=== PATIENT | male | born 1975 | race African-American/Black ===

== ENCOUNTER 2018-12-04 00:26 | Emergency (ER) | payer SELFPAY ==
[2018-12-04] MEDS ORDERED: ASPIRIN 81 MG TABLET, CHEWABLE PO ONE (01:00)
[2018-12-04 05:14] LABS: ABSOLUTE BASOPHILS # (AUTO) 0.1 10^3/uL (0.0-0.2); ABSOLUTE EOSINOPHILS # (AUTO) 0.4 10^3/uL (0.0-0.6); ABSOLUTE LYMPHOCYTES (AUTO) 1.8 10^3/uL (0.5-4.7); ABSOLUTE MONOCYTES (AUTO) 0.7 10^3/uL (0.1-1.4); ABSOLUTE NEUT (AUTO) 4.1 10^3/uL (1.7-8.2); BASOPHILS % (AUTO) 0.8 % (0-2); EOSINOPHILS % (AUTO) 5.2 % (0-6); HEMATOCRIT 45.2 % (37.9-51.0); HEMOGLOBIN 15.5 g/dL (13.5-17.0); LYMPHOCYTES % (AUTO) 25.4 % (13-45); MEAN CORPUSCULAR HGB CONC 34.3 g/dL (32.0-36.0); MEAN CORPUSCULAR VOLUME 85 fl (80-97); MONOCYTES % (AUTO) 10.2 % (3-13); PLATELET COUNT 170 10^3/uL (150-450); RED BLOOD COUNT 5.34 10^6/uL (4.35-5.55); RED CELL DISTRIBUTION WIDTH 13.2 % (11.5-14.0); SEGMENTED NEUTROPHILS % (AUTO) 58.4 % (42-78); TOTAL CELLS COUNTED % (AUTO) 100 %
[2018-12-04 05:29] LABS: ALANINE AMINOTRANSFERASE 39 U/L (21-72); ALKALINE PHOSPHATASE 49 U/L (38-126); ANION GAP 9 (5-19); ASPARTATE AMINO TRANSFERASE 24 U/L (17-59); BILIRUBIN,DIRECT 0.2 mg/dL (0.0-0.4); BILIRUBIN,TOTAL 0.5 mg/dL (0.2-1.3); BLOOD UREA NITROGEN 12 mg/dL (7-20); CALCIUM 9.3 mg/dL (8.4-10.2); CARBON DIOXIDE 24 mmol/L (22-30); CHLORIDE 108 mmol/L (98-107); CREATINE KINASE 144 U/L (55-170); GLUCOSE 108 mg/dL (75-110); POTASSIUM 3.9 mmol/L (3.6-5.0); SODIUM 141.1 mmol/L (137-145); TOTAL PROTEIN 7.4 g/dL (6.3-8.2)
[2018-12-04 05:42] LABS: TROPONIN I < 0.012 ng/mL
--- NOTE | 2018-12-04 06:08 | RADIOLOGY REPORT (SQ) ---
EXAM DESCRIPTION: XR CHEST 1 VIEW COMPLETED DATE/TME: 12/04/2018 01:00 CLINICAL HISTORY: 43 years, Male, CP COMPARISON: None. NUMBER OF VIEWS: One TECHNIQUE: AP view of the chest LIMITATIONS: None. FINDINGS: The lungs are clear. The heart is normal in size. There is no pneumothorax or pleural effusion. There is no acute fracture. The bones are unremarkable IMPRESSION: No acute cardiopulmonary abnormality copyright 2010 [employer]- All Rights Reserved
--- NOTE | 2018-12-04 07:37 | ER Document Report ---
ED Medical Screen (RME) - General Chief Complaint: Chest Pain > 30 Stated Complaint: CHEST PAIN Time Seen by Provider: 12/04/18 07:25 Notes: 43-year-old male, chief complaint of chest pain. He states he woke up with it last night, it felt tight in his sternum area, he also reports pain and tightness in his neck and upper back. Pain is worse with movement. He states symptoms have been intermittent for "a while", worse last night. 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 He smokes, has a history of hypertension, denies personal family cardiac history, denies recreational drugs. Currently only complaining of his neck and back hurting. TRAVEL OUTSIDE OF THE [place] IN LAST 30 DAYS: No - Related Data Allergies/Adverse Reactions: No Known Allergies Allergy (Unverified 11/15/15 11:27) Past Medical History - Past Medical History Cardiac Medical History: Reports: Hx Hypercholesterolemia, Hx Hypertension Renal/ Medical History: Denies: Hx Peritoneal Dialysis - Immunizations Hx Diphtheria, Pertussis, Tetanus Vaccination: Yes Physical Exam - Vital signs Vitals: Temp Pulse Resp BP Pulse Ox 98.1 F 68 16 144/91 H 97 12/04/18 00:33 12/04/18 00:33 12/04/18 00:33 12/04/18 00:33 12/04/18 00:33 - Respiratory Respiratory status: No respiratory distress Breath sounds: Normal - Cardiovascular Rhythm: Regular. No: Tachycardia Heart sounds: Normal auscultation, S1 appreciated, S2 appreciated Course - Re-evaluation Re-evalutation: Cycling second troponin, most likely musculoskeletal source I have greeted and performed a rapid initial assessment of this patient. A comprehensive ED assessment and evaluation of the patient, analysis of test results and completion of the medical decision making process will be conducted by additional ED providers. - Vital Signs Vital signs: Temp Pulse Resp BP Pulse Ox 98.1 F 68 16 144/91 H 97 12/04/18 00:33 12/04/18 00:33 12/04/18 00:33 12/04/18 00:33 12/04/18 00:33 - Laboratory Result Diagrams: 12/04/18 05:01 12/04/18 05:01 Laboratory results interpreted by me: 12/04/18 05:01 Chloride 108 H
--- NOTE | 2018-12-04 07:47 | EKG REPORT ---
SEVERITY:- ABNORMAL ECG - SINUS RHYTHM CONSIDER ANTEROSEPTAL INFARCT : Confirmed by: Valdez Claudio MD 04-Dec-2018 07:46:22
--- NOTE | 2018-12-04 10:08 | ER Document Report ---
ED General - General Chief Complaint: Chest Pain > 30 Stated Complaint: CHEST PAIN Time Seen by Provider: 12/04/18 07:25 Notes: 43-year-old male to the emergency department chief complaint of chest and back pain. Patient states that he has been having the symptoms for several days now. Having some coughing and wheezing as well. Waking up with mucus around his nose and eyes. The pain is located in the sternal area on the left side. Also having some pain in the back. Denies any shortness of breath. Does smoke. Does use marijuana. Does not take any medications. Was incarcerated for quite some time and during his incarceration he was on some blood pressure medications but since he has been released from custodial he has not been on any medications. Patient works as a building construction superintendent and around a lot of mold and dust recently and seems to be making his breathing worse. Movement makes the pain worse. Rest makes it better. No prior history of blood clots, DVTs, pulmonary embolisms. Mother had hypertension and diabetes and heart problems with 2 stents in her 60s. TRAVEL OUTSIDE OF THE [place] IN LAST 30 DAYS: No - HPI Onset: Last week Onset/Duration: Gradual, Waxing and waning Quality of pain: Achy Severity: Moderate Pain Level: 3 - Related Data Allergies/Adverse Reactions: No Known Allergies Allergy (Unverified 11/15/15 11:27) Past Medical History - Social History Smoking Status: Unknown if Ever Smoked Family History: Reviewed & Not Pertinent Patient has suicidal ideation: No Patient has homicidal ideation: No - Past Medical History Cardiac Medical History: Reports: Hx Hypercholesterolemia, Hx Hypertension Renal/ Medical History: Denies: Hx Peritoneal Dialysis - Immunizations Hx Diphtheria, Pertussis, Tetanus Vaccination: Yes Review of Systems - Review of Systems Notes: Constitutional: denies: Chills, Diaphoresis, Fever, Malaise, Weakness EENT: denies: Eye discharge, Blurred vision, Tearing, Double vision, Nose congestion, Nose discharge, Throat swelling, Mouth pain Cardiovascular: Patient denies any heart palpitations, heart is not racing. Denies any significant dyspnea. No dyspnea on exertion. No edema of the extremities. Does complain of some chest pain midsternum and rib pain at the back. Respiratory: Complaining of mild cough, wheezing but no shortness of breath. Gastrointestinal: denies: Abdominal pain, Diarrhea, Nausea, Vomiting, Black stools, bright red blood in stool Genitourinary: denies: Burning, Dysuria, Discharge, Frequency, Flank pain, Hematuria Musculoskeletal: denies: Joint pain, Joint swelling, Muscle pain, Muscle stiffness, back pain Hematologic/Lymphatic: denies: Anemia, Easy bleeding, Easy bruising, Blood clots Neurological/Psychological: denies: Confusion, Dementia, Depression, Loss of consciousness Skin: No lesions, no masses, no skin breakdown, no abscesses Physical Exam - Vital signs Vitals: Temp Pulse Resp BP Pulse Ox 98.1 F 68 16 144/91 H 97 12/04/18 00:33 12/04/18 00:33 12/04/18 00:33 12/04/18 00:33 12/04/18 00:33 Interpretation: Normal - General General appearance: Appears well, Alert - HEENT Head: Normocephalic, Atraumatic Eyes: Normal Pupils: PERRL - Respiratory Respiratory status: No respiratory distress Chest status: Nontender Breath sounds: Normal Chest palpation: Normal - Cardiovascular Rhythm: Regular Heart sounds: Normal auscultation Murmur: No Notes: Patient does have reproducible chest wall pain with palpation of the sternum at the costochondral margins. Has some mild pain to palpation at the costochondral margin of the thoracic spine on the left side. - Abdominal Inspection: Normal Distension: No distension Bowel sounds: Normal Tenderness: Nontender Organomegaly: No organomegaly - Back Back: Normal, Nontender - Extremities General upper extremity: Normal inspection, Nontender, Normal color, Normal ROM, Normal temperature. No: Edema General lower extremity: Normal inspection, Nontender, Normal color, Normal ROM, Normal temperature, Normal weight bearing. No: Edema, Mckenzie's sign - Neurological Neuro grossly intact: Yes Cognition: Normal Orientation: AAOx4 Konstantin Coma Scale Eye Opening: Spontaneous Konstantin Coma Scale Verbal: Oriented Konstantin Coma Scale Motor: Obeys Commands Mather Coma Scale Total: 15 Speech: Normal Motor strength normal: LUE, RUE, LLE, RLE Sensory: Normal - Psychological Associated symptoms: Normal affect, Normal mood - Skin Skin Temperature: Warm Skin Moisture: Dry Skin Color: Normal Course - Re-evaluation Re-evalutation: 12/04/18 10:34 Laboratory 12/04/18 12/04/18 12/04/18 05:01 05:01 05:01 WBC 7.0 RBC 5.34 Hgb 15.5 Hct 45.2 MCV 85 MCH 29.0 MCHC 34.3 RDW 13.2 Plt Count 170 Seg Neutrophils % 58.4 Lymphocytes % 25.4 Monocytes % 10.2 Eosinophils % 5.2 Basophils % 0.8 Absolute Neutrophils 4.1 Absolute Lymphocytes 1.8 Absolute Monocytes 0.7 Absolute Eosinophils 0.4 Absolute Basophils 0.1 Sodium 141.1 Potassium 3.9 Chloride 108 H Carbon Dioxide 24 Anion Gap 9 BUN 12 Creatinine 0.82 Est GFR ( Amer) > 60 Est GFR (Non-Af Amer) > 60 Glucose 108 Calcium 9.3 Total Bilirubin 0.5 Direct Bilirubin 0.2 Neonat Total Bilirubin Not Reportable Neonat Direct Bilirubin Not Reportable Neonat Indirect Bili Not Reportable AST 24 ALT 39 Alkaline Phosphatase 49 Creatine Kinase 144 CK-MB (CK-2) 1.10 Troponin I < 0.012 Total Protein 7.4 Albumin 4.0 12/04/18 08:05 WBC RBC Hgb Hct MCV MCH MCHC RDW Plt Count Seg Neutrophils % Lymphocytes % Monocytes % Eosinophils % Basophils % Absolute Neutrophils Absolute Lymphocytes Absolute Monocytes Absolute Eosinophils Absolute Basophils Sodium Potassium Chloride Carbon Dioxide Anion Gap BUN Creatinine Est GFR ( Amer) Est GFR (Non-Af Amer) Glucose Calcium Total Bilirubin Direct Bilirubin Neonat Total Bilirubin Neonat Direct Bilirubin Neonat Indirect Bili AST ALT Alkaline Phosphatase Creatine Kinase CK-MB (CK-2) Troponin I < 0.012 Total Protein Albumin Chest X-Ray 12/04/18 01:00 IMPRESSION: No acute cardiopulmonary abnormality copyright 2010 [employer]- All Rights Reserved Patient has had 2 sets of cardiac enzymes which are negative. Troponin undetectable. EKGs are normal sinus rhythm with a rate of 56 and 58. No significant pathology and no change from prior. Has reproducible chest wall pain. Patient visibly in pain when moving positions. He also reports some wheezing and coughing. More likely patient has just a little bit of inflammation. I am going to go ahead and treat him with a breathing treatment some Toradol and some prednisone. Unlikely this represents a cardiac event. Patient has a heart score of 3 still in low risk category. Patient and I did discuss the need for outpatient work-up including a stress test. We also discussed inpatient work-up versus outpatient work-up. He definitely does not want to be admitted for stress test. I am giving him follow-up information for some local [employer] associate that can provide affordable outpatient treadmill stress testing as well as echo stress testing. I have discussed with him about the need for risk modification management including smoking cessation, weight loss and blood pressure control. At this time I believe patient is stable for outpatient work-up and will DC at this time in stable condition. - Vital Signs Vital signs: Temp Pulse Resp BP Pulse Ox 98 F 68 16 148/80 H 98 12/04/18 08:00 12/04/18 00:33 12/04/18 08:00 12/04/18 08:00 12/04/18 08:00 - Laboratory Result Diagrams: 12/04/18 05:01 12/04/18 05:01 Laboratory results interpreted by me: 12/04/18 05:01 Chloride 108 H Discharge - Discharge Clinical Impression: Chest wall pain, Bronchitis Hypertension Qualifiers: Hypertension type: unspecified Qualified Code(s): I10 - Essential (primary) hypertension Condition: Good Disposition: HOME, SELF-CARE Instructions: Anti-Inflammatory Medication ([facility]), Aspirin (Cardiac) ([facility]), High Blood Pressure, Requiring Treatment ([facility]), Chest Pain of Unclear Cause ([facility]) Additional Instructions: It is very important that you stop smoking. Smoking is a #1 change that you can make to increase longevity and increase health span. Your blood pressure is slightly elevated today at 145/90. The current recommendations suggest that aggressive treatment of even moderately elevated blood pressure will be beneficial for health span and longevity. You will need further testing. I have provided follow-up information for [employer] associate that you should schedule an appointment with. They can assess whether or not you need other medications and can perform cost-effective risk stratification tests in their office such as stress testing and echocardiograms. In the event you develop any worsening symptoms you should return however for repeat evaluation. The observation time in the emergency department and labs as well as other testing did not reveal any major pathology today however things can change very rapidly. Once again please return immediately if symptoms are getting worse. Prescriptions: Albuterol Sulfate [Ventolin Hfa 8 gm Mdi (1 Mdi/ER Disp)] 2 puff IH ASDIR PRN 7 Days #1 inhaler PRN Reason: Aspirin [Adult Low Dose Aspirin EC] 81 mg PO DAILY 60 Days #60 tablet. Ibuprofen [Motrin 600 Mg Tablet] 600 mg PO TID 5 Days #15 tablet Losartan Potassium [Cozaar 25 mg Tablet] 25 mg PO DAILY 30 Days #30 tablet Prednisone [Deltasone 20 mg Tablet] 3 tab PO DAILY 5 Days #15 tablet Referrals: GERMAIN COYNE MD [ACTIVE STAFF] - Follow up in 3-5 days IQRA MANCILLA MD [ACTIVE STAFF] - Follow up in 3-5 days [facility] [Provider Group] - Follow up in 3-5 days
[2018-12-04] MEDS ORDERED: ALBUTEROL SULFATE 0.083% NEB 2.5 MG/3 ML AMPUL NEB ONE (10:09)
[2018-12-04] MEDS ORDERED: PREDNISONE 20 MG TABLET PO ONE (10:09)
[2018-12-04] MEDS ORDERED: KETOROLAC TROMETHAMINE 60 MG/2 ML SDV IM ONE (10:09)
[2018-12-04 11:24] VITALS: BP 122/93
--- NOTE | 2018-12-04 13:20 | EKG REPORT ---
SEVERITY:- ABNORMAL ECG - SINUS RHYTHM CONSIDER ANTEROSEPTAL INFARCT : Confirmed by: Valdez Claudio MD 04-Dec-2018 13:19:59
== END 2018-12-04 11:23 | disposition home or self-care (01) ==
LOC: ER 00:26
DX: J40 Bronchitis, not specified as acute or chronic (principal); R07.89 Other chest pain; R05 Cough; I10 Essential (primary) hypertension; R06.2 Wheezing
CPT/HCPCS: 93005; 94640; 99285; 96372; 36415; 82553; 82550; 85025; 80053; 84484; 71045; 93010; J1885; J7512